=== PATIENT | male | born 1960 | race Caucasian/White ===

== ENCOUNTER → 2020-02-11 | Outpatient (CLI) | payer MEDICAID ==
[~2020-02-11] MED LIST: ALOG1TAB8 PO; AMLO5TAB88 PO; HYDR25TA PO; INSU100I24 SQ; LIP40 PO; LISI40TA4 PO
== END | disposition home or self-care (01) ==
LOC: LAB 11:18
PROVIDERS: ATTEND Ophthalmology
DX: Z01.818 Encounter for other preprocedural examination (principal); Z11.59 Encounter for screening for other viral diseases
CPT/HCPCS: U0003-CS

== ENCOUNTER 2020-02-15 06:36 | Day surgery (SDC) | payer MEDICAID ==
[~2020-02-15] VITALS: Ht 170.2 cm; Wt 75.7 kg
[~2020-02-15 06:36] MED LIST changes: -ALOG1TAB8 PO; -AMLO5TAB88 PO; +CYCLOPENTOLATE HCL 1% OPHTH DROPS 2ML RIGHTEYE NR; -HYDR25TA PO; -INSU100I24 SQ; -LIP40 PO; -LISI40TA4 PO; +PHENYLEPHRINE HCL 10% OPHTH DROPS 5ML RIGHTEYE NR; +TROPICAMIDE 1% OPHTH DROPS 15ML RIGHTEYE NR
[2020-02-15] MEDS ORDERED: LACTATED RINGERS 1,000 ML IV SCH (07:26)
[2020-02-15] MEDS ORDERED: BALANCED SALT IRRIG SOLN COMB1 500ML OP ONE (07:30)
[2020-02-15] MEDS ORDERED: HYDR25TA PO (08:01)
[2020-02-15] MEDS ORDERED: INSU100I24 SQ (08:01)
[2020-02-15] MEDS ORDERED: ALOG1TAB8 PO (08:01)
[2020-02-15] MEDS ORDERED: LIP40 PO (08:01)
[2020-02-15] MEDS ORDERED: AMLO5TAB88 PO (08:01)
[2020-02-15] MEDS ORDERED: LISI40TA4 PO (08:02)
[2020-02-15] MEDS ORDERED: HYALURONATE SODIUM 10 MG/ML 0.55ML SYRINGE IO ONE (08:29)
[2020-02-15] MEDS ORDERED: MIDAZOLAM HCL 2 MG/2 ML VIAL ONE (08:31)
[2020-02-15] MEDS ORDERED: FENTANYL CITRATE/PF 50MCG/ML 2ML VIAL ONE (08:31)
[2020-02-15] MEDS ORDERED: PREDNISOLONE ACETATE 1% OPHTH DROPS 5ML ONE (11:05)
[2020-02-15] MEDS ORDERED: CIPROFLOXACIN 0.3% OPHTH SOLN 2.5ML ONE (11:05)
[2020-02-15] MEDS ORDERED: PHENYLEPHRINE HCL 10% OPHTH DROPS 5ML ONE (11:05)
[2020-02-15] MEDS ORDERED: LIDOCAINE HCL/PF 2% 20 MG/ML 10ML VIAL ONE (11:05)
[2020-02-15] MEDS ORDERED: TETRACAINE 0.5% OPHTH DROPS 4ML ONE (11:05)
[2020-02-15] MEDS ORDERED: CYCLOPENTOLATE HCL 1% OPHTH DROPS 2ML ONE (11:05)
[2020-02-15] MEDS ORDERED: TROPICAMIDE 1% OPHTH DROPS 15ML ONE (11:05)
[2020-02-15] MEDS ORDERED: BALANCED SALT IRRIG SOLN 15ML ONE (11:05)
== END 2020-02-15 09:50 | disposition home or self-care (01) ==
LOC: OR 06:36
PROVIDERS: ATTEND Ophthalmology
DX: E11.36 Type 2 diabetes mellitus with diabetic cataract (principal); H25.89 Other age-related cataract; I10 Essential (primary) hypertension; E78.00 Pure hypercholesterolemia, unspecified; Z79.899 Other long term (current) drug therapy; Z98.890 Other specified postprocedural states; Z79.4 Long term (current) use of insulin
CPT/HCPCS: 66984; 82962; J2250; J3010; J3490; V2632

== ENCOUNTER → 2020-04-28 | Outpatient (CLI) | payer MEDICAID ==
[~2020-04-28] MED LIST changes: +ALOG1TAB8 PO; +AMLO5TAB88 PO; -CYCLOPENTOLATE HCL 1% OPHTH DROPS 2ML RIGHTEYE NR; +HYDR25TA PO; +INSU100I24 SQ; +LIP40 PO; +LISI40TA4 PO; -PHENYLEPHRINE HCL 10% OPHTH DROPS 5ML RIGHTEYE NR; -TROPICAMIDE 1% OPHTH DROPS 15ML RIGHTEYE NR
== END | disposition home or self-care (01) ==
LOC: LAB 07:41
PROVIDERS: ATTEND Ophthalmology
DX: Z01.812 Encounter for preprocedural laboratory examination (principal); Z20.828 Contact with and (suspected) exposure to other viral communicable diseases
CPT/HCPCS: C9803; U0003

== ENCOUNTER → 2020-05-02 | Day surgery (SDC) | payer MEDICAID ==
[~2020-05-02] VITALS: Ht 170.2 cm; Wt 75.7 kg
[~2020-05-02] MED LIST changes: +BALANCED SALT IRRIG SOLN 15ML ONE; +BALANCED SALT IRRIG SOLN COMB1 500ML OP ONE; +CIPROFLOXACIN 0.3% OPHTH SOLN 2.5ML ONE; +CYCLOPENTOLATE HCL 1% OPHTH DROPS 2ML LEFTEYE ONE; +FENTANYL CITRATE/PF 50MCG/ML 2ML VIAL ONE; +HYALURONATE SODIUM 10 MG/ML 0.55ML SYRINGE IO ONE; +LACTATED RINGERS 1,000 ML IV SCH; +LIDOCAINE HCL/PF 2% 20 MG/ML 10ML VIAL ONE; +MIDAZOLAM HCL 2 MG/2 ML VIAL ONE; +NEO/POLYMYX B SULF/DEXAMETH OPHTH OINT 3.5GM ONE; +PHENYLEPHRINE HCL 10% OPHTH DROPS 5ML LEFTEYE ONE; +PREDNISOLONE ACETATE 1% OPHTH DROPS 5ML ONE; +SODIUM CHLORIDE 0.9% 1,000 ML IV ONE; +TETRACAINE 0.5% OPHTH DROPS 4ML ONE; +TROPICAMIDE 1% OPHTH DROPS 15ML LEFTEYE ONE
== END | disposition home or self-care (01) ==
LOC: OR 07:32
PROVIDERS: ATTEND Ophthalmology
DX: E11.36 Type 2 diabetes mellitus with diabetic cataract (principal); H25.89 Other age-related cataract; E78.00 Pure hypercholesterolemia, unspecified; I10 Essential (primary) hypertension; Z79.84 Long term (current) use of oral hypoglycemic drugs; Z79.82 Long term (current) use of aspirin; Z79.899 Other long term (current) drug therapy; Z79.4 Long term (current) use of insulin; Z98.890 Other specified postprocedural states
CPT/HCPCS: 66984; 82962; 93005; J2250; J3010; J3490; V2632